=== PATIENT | female | born 1945 | race Caucasian/White ===

== ENCOUNTER 2017-09-11 00:39 | Emergency (ER) | payer MEDICARE, OTHER ==
[~2017-09-11] VITALS: Ht 170.2 cm; Wt 84.5 kg
[~2017-09-11 00:39] MED LIST: SERT-129 PO
[2017-09-11 00:43] VITALS: BP 186/85; PULSE 67; RESP 20; TEMP 98.2; O2SAT 96
[2017-09-11] MEDS ORDERED: DEXAMETHASONE SOD PHOS 20 MG/5 ML VIAL IM ONE (01:15)
--- NOTE | 2017-09-11 01:19 | PD ---
HPI Chief Complaint: Cold / Flu Symptoms Time Seen by Provider: 00:52 Travel History International Travel<30 days: No Contact w/Intl Traveler<30days: No Traveled to known affect area: No History of Present Illness HPI 72-year-old female with a past medical history of hypertension and basal cell carcinoma of the nose presents to the emergency room after inhaling some of them millstone cleaner fumes while cleaning her abdomen. Patient flushed her face nose and mouth with water immediately however a few hours later she felt some irritation in the nostrils. Patient denies any fever, chills, shortness of breath, wheezing, difficulty swallowing or palpitations. 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) Psychiatric: Yes Reproductive: No Respiratory: No Integumentary: Yes (SKIN CANCER) Radiation Therapy: Yes (on nose) Past Surgical History Appendectomy: Yes Cholecystectomy: Yes Genitourinary Surgery: Yes (lithotrypsy) Hysterectomy: Yes Tonsillectomy: Yes Social History Alcohol Use: No Tobacco Use: No Substance Use: No Allergies-Medications (Allergen,Severity, Reaction): Coded Allergies: Horse/Equine Containing Products (Unverified Allergy, Severe, fever, ) Iodinated Contrast- Oral and IV Dye (Unverified Allergy, Severe, can't breathe, 09/11/17) meperidine (Unverified Allergy, Severe, vomiting, 09/11/17) oxytetracycline (Unverified Allergy, Severe, Anaphylaxis, 09/11/17) Reported Meds & Prescriptions Reported Meds & Active Scripts Active Reported Sertraline 100 mg (Sertraline HCl) 100 Mg Tab 100 Mg PO DAILY Physical Exam Narrative Vital Signs Date Time Temp Pulse Resp B/P (MAP) Pulse Ox O2 Delivery O2 Flow Rate FiO2 09/11/17 01:00 20 09/11/17 00:43 98.2 67 20 186/85 (672) 96 GENERAL: Patient is alert and oriented -3 SKIN: Focused skin assessment warm/dry. HEAD: Atraumatic. Normocephalic. EYES: Pupils equal and round. No scleral icterus. No injection or drainage. ENT: No nasal bleeding or discharge. Mucous membranes are erythematous in the nose and oropharynx and moist. NECK: Trachea midline. No JVD. CARDIOVASCULAR: Regular rate and rhythm. No murmur appreciated. RESPIRATORY: No accessory muscle use. Clear to auscultation. Breath sounds equal bilaterally. GASTROINTESTINAL: Abdomen soft, non-tender, nondistended. Hepatic and splenic margins not palpable. MUSCULOSKELETAL: No obvious deformities. No clubbing. No cyanosis. No edema. NEUROLOGICAL: Awake and alert. No obvious cranial nerve deficits. Motor grossly within normal limits. Normal speech. PSYCHIATRIC: Appropriate mood and affect; insight and judgment normal. Data Data Last Documented VS Vital Signs Date Time Temp Pulse Resp B/P (MAP) Pulse Ox O2 Delivery O2 Flow Rate FiO2 09/11/17 01:00 20 09/11/17 00:43 98.2 67 186/85 (118) 96 Orders Orders Dexamethasone Inj (Decadron Inj) (09/11/17 01:15) [facility] Medical Decision Making Medical Screen Exam Complete: Yes Emergency Medical Condition: Yes Medical Record Reviewed: Yes Differential Diagnosis Chemical irritation, sinusitis, upper respiratory infection Narrative Course Patient has been stable in the emergency room. She was counseled about constant room temperature water irrigation of her nose and oropharynx. Patient was also counseled about complications of shortness of breath. Diagnosis Primary Impression: Exposure to chemical irritant Additional Impression: Irritant contact dermatitis due to chemical Referrals: Primary Care Physician 2 days Patient Instructions: Chemical Skin Burn (ED), General Instructions Disposition: 01 DISCHARGE HOME Condition: Stable Doc Woods MD September 11, 2017 01:19
[2017-09-11 01:41] VITALS: BP 143/74
== END 2017-09-11 01:52 | disposition home or self-care (01) ==
LOC: PHED 00:39
DX: L24.5 Irritant contact dermatitis due to other chemical products (principal); Z77.098 Contact with and (suspected) exposure to other hazardous, chiefly nonmedicinal, chemicals; F32.9 Major depressive disorder, single episode, unspecified; I10 Essential (primary) hypertension; Z86.73 Personal history of transient ischemic attack (TIA), and cerebral infarction without residual deficits; Z85.828 Personal history of other malignant neoplasm of skin
CPT/HCPCS: 96372; 99283; J1100